=== PATIENT | female | born 1985 | race African-American/Black ===

== ENCOUNTER 2017-02-28 09:21 | Emergency (ER) | payer MEDICAID, SELFPAY | END 2017-02-28 10:33 | disposition home or self-care (01) | LOC: MADERS 09:21 | DX: J02.9 Acute pharyngitis, unspecified (principal); K02.9 Dental caries, unspecified; K03.81 Cracked tooth | CPT/HCPCS: 99282 ==

== ENCOUNTER 2017-03-08 15:30 | Emergency (ER) | payer MEDICAID, SELFPAY | END 2017-03-08 16:10 | disposition home or self-care (01) | LOC: MADERS 15:30 | DX: J02.9 Acute pharyngitis, unspecified (principal) | CPT/HCPCS: 99283 ==

== ENCOUNTER 2017-06-13 02:02 | Emergency (ER) | payer MEDICAID, SELFPAY | END 2017-06-13 03:40 | disposition home or self-care (01) | LOC: MADERS 02:02 | DX: L50.0 Allergic urticaria (principal) | CPT/HCPCS: 96372; J1040 ==

== ENCOUNTER 2017-07-18 17:17 | Emergency (ER) | payer MEDICAID, SELFPAY | END 2017-07-18 18:27 | disposition home or self-care (01) | LOC: MADERS 17:17 | DX: T78.3XXA Angioneurotic edema, initial encounter (principal) | CPT/HCPCS: 96372; J1040 ==

== ENCOUNTER 2022-05-18 08:28 | Emergency (ER) | payer OTHER, SELFPAY ==
[2022-05-18 09:51] LABS: Pregu Control Background? CLEAR/WHITE (CLR/WHITE); Pregu Control Bar Appear? YES (CONTROL BAR); Specific Gravity 1.034 (1.002-1.036)
[2022-05-18 09:52] LABS: Pregnancy Test - Urine (BHCG) Negative (Negative)
[2022-05-18] MEDS ORDERED: Ibuprofen 800 MG TAB ONE (09:57)
[2022-05-18] MEDS ORDERED: Clindamycin 150 MG CAP ONE (09:57)
== END 2022-05-18 10:07 | disposition home or self-care (01) ==
LOC: MADERS 08:28
DX: K02.9 Dental caries, unspecified (principal)
CPT/HCPCS: 81025; 99283